=== PATIENT | female | born 1995 | race Hispanic/Latino ===

== ENCOUNTER 2017-07-18 11:26 | Emergency (ER) | payer OTHER ==
[2017-07-18 12:24] LABS: Bilirubin Negative (Negative); Blood, Urine Trace (Negative); Clarity CLEAR (Clear); Glucose, Urine (Dipstick) Negative (Negative); Leukocyte Negative (Negative); Nitrite Negative (Negative); Protein, Urine (Dipstick) Negative (Neg-Trace); Specific Gravity, Urine 1.021 (1.002-1.036)
[2017-07-18] MEDS ORDERED: Ketorolac Tromethamine 30 MG/ML VIAL ONE (12:26)
[2017-07-18 12:27] LABS: Bacteria/HPF None Seen HPF (None Seen); Hyaline Casts/LPF 0-3 HYALINE CAST LPF (0-3 Hyaline); Pathc Cast-AUWi Flag 0.58 (0-2.49); RBC/HPF 0-3 HPF (0-3); Squamous Epithelial 0-3 HPF (0-3); WBC/HPF 0-3 HPF (0-3)
[2017-07-18 12:31] LABS: Pregnancy Test - Urine (BHCG) Negative (Negative); Pregu Control Background? CLEAR/WHITE (CLR/WHITE); Pregu Control Bar Appear? YES (CONTROL BAR); Specific Gravity 1.021 (1.002-1.036)
== END 2017-07-18 13:34 | disposition home or self-care (01) ==
LOC: ERS 11:26
DX: R10.2 Pelvic and perineal pain (principal); F41.9 Anxiety disorder, unspecified; F32.9 Major depressive disorder, single episode, unspecified
CPT/HCPCS: 81003; 81015; 81025; 96372; J1885

== ENCOUNTER 2018-01-13 12:42 | Emergency (ER) | payer OTHER ==
[2018-01-13] MEDS ORDERED: diphenhydrAMINE 25 MG CAP ONE (13:08)
[2018-01-13] MEDS ORDERED: Famotidine 20 MG TAB ONE ×2 (13:08→13:10)
== END 2018-01-13 13:31 | disposition home or self-care (01) ==
LOC: ERS 12:42
DX: L50.3 Dermatographic urticaria (principal); J45.909 Unspecified asthma, uncomplicated; F41.9 Anxiety disorder, unspecified; F32.9 Major depressive disorder, single episode, unspecified; Z79.899 Other long term (current) drug therapy
CPT/HCPCS: 99282

== ENCOUNTER 2018-02-12 17:06 | Observation (INO) | payer OTHER ==
[~2018-02-12 17:06] MED LIST: ISOVUE-370 76%-LOCM 1 ML ONE
[2018-02-12 17:48] LABS: #Basophils 0.1 thou/uL (0.0-0.2); #Eosinphils 0.2 thou/uL (0.0-0.7); #Monocytes 0.5 thou/uL (0.11-0.59); #Neutrophils 4.1 thou/uL (1.40-6.50); %Basophils 1.4 % (0.0-1.0); %Eosinophils 2.4 % (0.0-10.0); %Lymphocytes 29.4 % (21.0-51.0); %Monocytes 7.4 % (0.0-10.0); %Neutrophils 59.4 % (42.0-75.0); Hemoglobin 14.2 g/dL (12.0-16.0); Mean Corpuscular Hemoglobin 29.9 pg (27.0-31.0); Mean Corpuscular Volume 88.1 fL (78.0-98.0); Mean Platelet Volume 6.5 fL (7.4-10.4); Platelet Count 328 thou/uL (130-400); RBC Distribution Width 10.9 % (11.5-14.5); Red Blood Cell (RBC) Count 4.74 mill/uL (4.20-5.40); White Blood Cell (WBC) Count 6.8 thou/uL (4.8-10.8)
[2018-02-12 18:09] LABS: ALT (SGPT) 13 U/L (8-55); AST (SGOT) 18 U/L (5-34); Albumin 4.6 g/dL (3.5-5.0); Alkaline Phosphatase 79 U/L (40-150); Anion Gap 11 mmol/L (10-20); BUN (Urea Nitrogen) 11 mg/dL (7.0-18.7); Bilirubin, Total 0.8 mg/dL (0.2-1.2); CK (CPK) 75 U/L (29-168); Calc. Creatinine Clearance 0 mL/min (70-130); Calcium 9.5 mg/dL (7.8-10.44); Carbon Dioxide 23 mmol/L (22-29); Chloride 105 mmol/L (98-107); Estimated GFR-MDRD Greater than 90; Globulin 2.9 g/dL (2.4-3.5); Glucose 76 mg/dL (70-105); Potassium 3.5 mmol/L (3.5-5.1); Protein, Total 7.5 g/dL (6.0-8.3); Sodium 135 mmol/L (136-145)
[2018-02-12 18:13] LABS: CKMB 0.7 ng/mL (0-6.6); Troponin I Less than 0.010 ng/mL (< 0.028)
--- NOTE | 2018-02-12 20:23 | RAD ---
FRONTAL RADIOGRAPH CHEST 02/12/18 COMPARISON: 11/27/11. HISTORY: Syncope, tachycardia. FINDINGS: There is no pneumothorax, pleural fluid, lobar consolidation, or alveolar edema. Heart and mediastina l contours are within normal limits. IMPRESSION: No acute findings. POS: [facility]
--- NOTE | 2018-02-12 21:08 | CT ---
CT ANGIOGRAM CHEST: 02/12/2018 HISTORY: Tachycardia and dizziness. Assess for pulmonary embolism. TECHNIQUE: Serial axial CT imaging is obtained at 2.5 mm intervals, from the thoracic inlet through the upper ab domen, with IV contrast, using a CT angiogram protocol. Coronal and oblique sagittal 3D reformatted imaging obtained. FINDINGS: The imaged upper abdomen is grossly unremarkable. No pleural, pericardial, or mediastinal fluid. No lymphadenopathy is noted in the chest. No pulmonary arterial filling defect is noted to suggest the presence of acute pulmonary embolism. The osseous structures demonstrate no acute findings. The lung parenchyma demonstrates no acute findings. IMPRESSION: No evidence for pulmonary embolism. POS: [facility]
[2018-02-13 00:27] VITALS: BMI 26.3
[2018-02-13] MEDS ORDERED: Acetaminophen 325 MG TAB PO PRN (08:36)
[2018-02-13] MEDS ORDERED: Ondansetron PF 4 MG/2 ML Vial IVP PRN (08:48)
[2018-02-13] MEDS ORDERED: Ondansetron ODT 4 MG TAB PO PRN (08:48)
[2018-02-13] MEDS: Sodium Chloride 0.9% 1,000 ML IV SCH ×3 (09:37→18:22)
[2018-02-13] MEDS: Enoxaparin Sodium 40 MG/0.4 ML SYRINGE SC SCH (09:37)
[2018-02-13] MEDS: Famotidine 20 MG TAB PO SCH ×2 (09:38→20:47)
[2018-02-13] MEDS ORDERED: Cosyntropin 250 MCG VIAL SLOW IVP SCH (15:30)
[2018-02-13] MEDS ORDERED: PROVENTIL INHALER 6.7 G (200 INHALATIONS) INH PRN (17:43)
--- NOTE | 2018-02-13 21:08 | HP ---
DATE OF ADMISSION: 02/12/2018 PRIMARY CARE PHYSICIAN: Dr. Elliott. CHIEF COMPLAINT: Chest pain, palpitations, and dizziness. HISTORY OF PRESENT ILLNESS: Ms. Camargo is a pleasant 22-year-old female with a past medical histor y of endometriosis, ovarian cyst, and asthma, who had presented to [facility] with symptoms of chest pain, heart racing, and dizziness. She states symptoms started about 3 to 4 d ays ago. She states that she was seen at [facility]. Two days ago, she states her steff p was normal and she was discharged to follow up with her PCP. She saw Dr. Elliott yesterday with sa me symptoms, she was told to come to the ER at that time. She denies any fever, chills, cough, nause a, vomiting, leg swelling, smoking, or drug use. She reports a recent hysterectomy back in October r underlying endometriosis, she is currently on control hormone patch. Her workup in the ER in cluded a chest x-ray, which was found to be unremarkable along with CTA of chest, which was negative for PE at that time. Her vital signs at rest are stable; however, orthostatic blood pressure was obt ained and was positive for orthostatic hypotension. She had reports drinking about 5 water bottles a day along with getting 3 liters of fluid between [facility] and [facility]. She states that she has noticed a little improvement of symptoms. Morning cortisol was o btained and found to be 4.0. It was ultimately decided that she will be admitted under observation s tatus for further workup of symptoms. PAST MEDICAL HISTORY: Ovarian cyst, endometriosis, asthma. PAST SURGICAL HISTORY: section, multiple laparoscopic surgeries for 1endometriosis, and tot al hysterectomy. PSYCHIATRIC HISTORY: Does report history of anxiety and depression. SOCIAL HISTORY: Denies smoking, alcohol use, or drug use. ALLERGIES: No known drug allergies. CURRENT MEDICATIONS: 1. Estradiol 0.05 mg patch 1 patch daily. 2. Cymbalta 30 mg p.o. daily. 3. ProAir HFA inhaler, 2 puffs q.6 hours as needed for wheezing. REVIEW OF SYSTEMS: Constitutional: Denies any fever, chills, weight loss, or weight gain. HEENT: Denies any headache, blurred vision, eye pain, sore throat, change in vision, change in hearing, or t rouble swallowing. Cardiovascular: Does report some chest pain, palpitations when standing. Respir atory: Denies any cough, shortness of breath, or wheezing. Gastrointestinal: Denies any abdominal pain, constipation, or diarrhea. Musculoskeletal: Denies any swelling or weakness. Skin: Denies an y rash, lesions, or bruising. Neurologic: Reports some dizziness upon standing, denies any weakness or memory loss or trauma. Psychiatric: Does report history of anxiety and depression. Denies suic idal or homicidal ideation. PHYSICAL EXAMINATION: VITAL SIGNS: Blood pressure 122/82, pulse 68, respirations 16, O2 saturations 98% on room air. GENERAL: She is alert, oriented x3, no acute distress noted. HEENT: Head is normocephalic, atraumatic. Eyes are equal. Pupils are round, reactive to light. Ex traocular muscles intact. Ears, Nose, and Throat: Clear. Moist mucous membranes noted. NECK: Supple, normal range of motion. Trachea midline. No JVD, no bruit. CARDIAC: Positive orthostatic hypotension. Positive S1, S2. No murmurs or rubs. LUNGS: Clear to auscultation bilaterally. No wheezes, no rhonchi, no rales. ABDOMEN: Soft, nontender. Bowel sounds present. No masses noted. MUSCULOSKELETAL: Strength 5+ bilaterally upper and lower extremities. Radial and pedal pulses 2+ bi laterally. No edema noted. NEUROLOGY: Patient is alert and oriented x3. Speech is normal. No focal deficits noted. No sensor y loss. SKIN: Warm, dry, and intact. No lesions. No bruising noted. PSYCHIATRIC: Normal mood and affect. ASSESSMENT AND PLAN: 1. Chest pain, we will rule out Cardiology causes, patient denies any chest pain upon my exam, she w ill be continued on her home medications, orthostatic blood pressure is positive. She will be treate d with gentle IV hydration. Cortisol level 4.0 this morning, we will obtain ACTH stimulation in the a.m. Vital signs and cardiac enzymes will be monitored closely. Serial troponins will be obtained. Stress test will be ordered to rule out cardiac etiology. 2. Orthostatic hypotension, we will consider adrenal insufficiency, cortisol level 4.0 this morning. We will obtain ACTH stimulation test in the a.m. if positive, we will start patient on steroids. W e will continue gentle hydration for now with normal saline and monitor closely. 3. History of asthma, we will restart her home medication of ProAir inhaler to be used as needed for shortness of breath, she remained stable at this time with no complaints of shortness of breath or w heezing, lungs are clear, CTA negative for PE, chest x-ray unremarkable. 4. Deep venous thrombosis prophylaxis with Lovenox 40 mg subcutaneous daily. 5. Gastrointestinal prophylaxis with Pepcid 20 mg p.o. b.i.d., Zofran as needed for nausea. 6. Code status: FULL CODE. DISPOSITION: Pending. Patient progress and further workup, likely discharged if stable under 48 aldair rs, likely discharge home with close outpatient followup with PCP.
[2018-02-14] MEDS: Sodium Chloride 0.9% 1,000 ML IV SCH ×3 (01:54→16:33)
[2018-02-14 07:24] LABS: #Eosinphils 0.2 thou/uL (0.0-0.7); #Lymphocytes 1.8 thou/uL (1.20-3.40); #Monocytes 0.4 thou/uL (0.11-0.59); #Neutrophils 2.3 thou/uL (1.40-6.50); %Basophils 0.7 % (0.0-1.0); %Eosinophils 4.5 % (0.0-10.0); %Lymphocytes 37.4 % (21.0-51.0); %Monocytes 9.1 % (0.0-10.0); %Neutrophils 48.4 % (42.0-75.0); Hemoglobin 12.8 g/dL (12.0-16.0); Mean Corpuscular HGB CONC 33.2 g/dL (32.0-36.0); Mean Corpuscular Hemoglobin 29.5 pg (27.0-31.0); Mean Corpuscular Volume 88.8 fL (78.0-98.0); Mean Platelet Volume 6.4 fL (7.4-10.4); Platelet Count 255 thou/uL (130-400); RBC Distribution Width 10.9 % (11.5-14.5); Red Blood Cell (RBC) Count 4.35 mill/uL (4.20-5.40); White Blood Cell (WBC) Count 4.7 thou/uL (4.8-10.8)
[2018-02-14 07:42] LABS: Anion Gap 10 mmol/L (10-20); BUN (Urea Nitrogen) 7 mg/dL (7.0-18.7); Calc. Creatinine Clearance 143 mL/min (70-130); Calcium 8.6 mg/dL (7.8-10.44); Carbon Dioxide 25 mmol/L (22-29); Chloride 108 mmol/L (98-107); Estimated GFR-MDRD Greater than 90; Glucose 80 mg/dL (70-105); Potassium 3.6 mmol/L (3.5-5.1); Sodium 139 mmol/L (136-145)
[2018-02-14] MEDS: Famotidine 20 MG TAB PO SCH ×2 (09:36→20:47)
[2018-02-14] MEDS: Enoxaparin Sodium 40 MG/0.4 ML SYRINGE SC SCH (09:36)
[2018-02-14] MEDS: DULoxetine 30 MG CAP PO SCH (09:36)
[2018-02-14] MEDS ORDERED: Midodrine HCl 5 MG TAB PO SCH ×2 (12:15→15:00)
--- NOTE | 2018-02-14 15:33 | PDOC.PN ---
- Subjective Encounter Start Date: 02/14/18 Encounter Start Time: 13:00 Patient seen and examined with mother at bedside this morning. She continues to become hypotensive upon standing with dizziness. She was placed on midodrine, however repeat orthos positive. She denies chest pain, shortness of breath or palpitations at rest. - Objective Resuscitation Status FULL:Full Resuscitation MAR Reviewed: Yes Vital Signs & Weight: Vital Signs (12 hours) Temp Pulse Resp BP BP BP BP 02/14/18 14:18 97.9 F 135 H 16 111/64 93/56 L 115/73 02/14/18 11:28 98.6 F 77 16 111/75 02/14/18 07:34 98.3 F 70 20 116/79 106/68 121/83 02/14/18 04:07 97.6 F 74 16 116/75 Pulse Ox 02/14/18 14:18 99 02/14/18 11:28 97 02/14/18 07:34 98 02/14/18 04:07 98 Weight Admit Weight 153 lb 3.2 oz Weight 152 lb 9.6 oz I&O: 02/13/18 02/14/18 02/15/18 06:59 06:59 06:59 Intake Total 4456 442 Output Total 550 2550 Balance -550 1906 442 Result Diagrams: 02/14/18 07:10 02/14/18 07:10 Radiology Reviewed by me: Yes EKG Reviewed by me: Yes <Gilmar Gallardo - Last Filed: 02/14/18 15:30> - Objective Vital Signs & Weight: Weight Admit Weight 153 lb 3.2 oz Weight 152 lb 9.6 oz Result Diagrams: 02/14/18 07:10 02/14/18 07:10 <Sami Yan - Last Filed: 03/08/18 08:54> Phys Exam - Physical Examination Constitutional: NAD HEENT: PERRLA, moist MMs, sclera anicteric, oral pharynx no lesions Neck: no nodes, no JVD, supple Respiratory: no wheezing, no rales, no rhonchi, clear to auscultation bilateral Cardiovascular: RRR, no significant murmur, no rub Gastrointestinal: soft, non-tender, no distention, positive bowel sounds Musculoskeletal: no edema, pulses present Neurological: non-focal, normal sensation, moves all 4 limbs Lymphatic: no nodes Psychiatric: normal affect, A&O x 3 Skin: no rash, normal turgor, cap refill <2 seconds <Gilmar Gallardo - Last Filed: 02/14/18 15:30> Dx/Plan (1) Orthostatic hypotension Code(s): I95.1 - ORTHOSTATIC HYPOTENSION Status: Acute (2) Palpitations Code(s): R00.2 - PALPITATIONS Status: Acute - Plan cont current plan of care, plan discussed w/ family, DVT proph w/lovenox, DVT proph w/SCDs * Continue IV hydration, Midodrine for orthostatic hypotension * ACTH stimulation test normal * Obtain echocardiogram * Monitor orthostatic VS * Further management pending results and patient progress with Midodrine just started today around 1200 <Gilmar Gallardo - Last Filed: 02/14/18 15:30> - Plan * . <Sami Yan - Last Filed: 03/08/18 08:54> Attending Addendum - Attending Addendum Date/Time: 03/08/18 0854 Pt seen and examined in conjunction with Gilmar Gallardo PA-C on the day of service. I have seen and evaluated the patient and reviewed all documentations. I agree with the findings and plan as outlined in his note and participated in Medical decision-making. -Sami Yan MD <Sami Yan - Last Filed: 03/08/18 08:54>
[2018-02-14] MEDS: Midodrine HCl 5 MG TAB PO SCH (20:47)
[2018-02-15] MEDS: Sodium Chloride 0.9% 1,000 ML IV SCH ×2 (01:23→09:19)
[2018-02-15] MEDS: Enoxaparin Sodium 40 MG/0.4 ML SYRINGE SC SCH (08:34)
[2018-02-15] MEDS: DULoxetine 30 MG CAP PO SCH (08:35)
[2018-02-15] MEDS: Famotidine 20 MG TAB PO SCH (08:35)
[2018-02-15] MEDS: Midodrine HCl 5 MG TAB PO SCH ×2 (08:41→15:11)
[2018-02-15 15:53] VITALS: BP 131/88; TEMP 98.3
--- NOTE | 2018-02-16 10:47 | DIS ---
DATE OF ADMISSION: 02/12/2018 DATE OF DISCHARGE: 02/15/2018 PRIMARY CARE PHYSICIAN: Dr. Elliott CONSULTATIONS: None. PROCEDURES: The patient received a chest x-ray which showed no acute findings. The patient had a CTA of the chest that showed no evidence of a pulmonary embolism. The patient had an echocardiogram with ejection fraction 55-60%, left atrium normal size. Trace mitral regurgitation, trace tricuspid regurgitation, normal pulmonary artery pressure. DISCHARGE DIAGNOSES: 1. Chest pain, atypical in nature. 2. Orthostatic hypotension 3. History of asthma. She was continued on her ProAir inhaler. REVIEW OF SYSTEMS: The patient was seen by and examined the morning of discharge. CONSTITUTIONAL: Denies any chills and fever. EYES: Negative review of systems. ENT: Negative ears, nose, throat review of systems. CARDIOVASCULAR: Denied any chest pain, denies any palpitations, denied any presyncopal or syncopal episodes while admitted. RESPIRATORY: Denied any cough, shortness of breath. GI: Denied any abdominal pain, nausea, vomiting, diarrhea. MUSCULOSKELETAL: Negative of review of systems. SKIN: Negative of review of systems. NEUROLOGIC: Denied any dizziness. ENDOCRINE: Negative review of systems. PSYCH: Negative review of systems. PHYSICAL EXAMINATION: VITAL ON DISCHARGE: Temperature 98.2, pulse 75, respirations were 20. Pulse ox is 98% on room air, blood pressure 115/76. GENERAL: The patient is sitting in bed watching a movie with her son, is in no distress. HEAD: Head is atraumatic, normocephalic. EYES: Normal to inspection. Pupils are equally round and reactive to light. Extraocular muscles are intact. ENT: No bleeding from the nares. Mucous membranes are moist. NECK: Normal range of motion. Trachea is midline. RESPIRATORY: Breath sounds are clear. CARDIOVASCULAR: Heart sounds are normal. S1, S2, no gallop, no rub. ABDOMEN: Female, nontender on palpation. Bowel sounds are heard x4. BACK: Normal range of motion. No CVA tenderness. EXTREMITIES: Upper and lower extremities are normal to inspection, normal range of motion. Pulses are equal bilaterally. No pedal edema is noted. NEUROLOGIC: The patient is alert, oriented to person, place and time. No focal motor or sensory deficits. SKIN: Warm, dry, normal in color. PSYCHIATRIC: The patient is oriented to person, place and time. Normal affect. HOSPITAL COURSE: This is a pleasant 22-year-old female who was admitted to the emergency room on 02/12/2018 with a complaint of heart racing and dizziness and heavy pressure/chest pain on the left hand side. The patient felt like she was going to pass out when she stood up. The patient had reported that she had been to the [facility] earlier this week. Reports had blood drawn, some IV fluids and sent home. The patient reported to [facility] because she did not feel much better. Past medical history was significant for a hysterectomy in October for endometriosis and hormone replacement with a hormone patch. The patient had orthostatic hypotension and was started on midodrine 5 mg p.o. t.i.d. On day of discharge, the patient states that she feels much better, no longer gets dizzy when she changes position, has been able to ambulate to the bathroom and to the hallway without assistance and without feeling dizzy or feeling like she was presyncopal. Echocardiogram had been performed, but had not been read prior to discharge. The patient was instructed to follow up with Dr. Elliott for findings. Discharge plan discussed with Dr. Hernandez, who agreed with discharge plan home. The patient did have a stem cortisol test which showed to be within normal limits. TSH was also unremarkable. HOME MEDICATIONS: The patient will be continued on ProAir 2 puffs q.6 hours as needed, Cymbalta 30 mg p.o. daily, Estradiol 0.05 mg patch 1 patch every 7 days and the midodrine 5 mg p.o. t.i.d. was added to her home medication. ALLERGIES: The patient has no known drug allergies. CONDITION: The patient's condition is stable. DISCHARGE INSTRUCTIONS: The patient will be discharged home. The patient is instructed to follow up with Dr. Elliott within 1 week. Also, instructed to follow up with her PHARMACY CARE COORDINATOR to discuss estradiol patch as she reports since she switched to the generic her skin breaks out from time to time. MARIELA
== END 2018-02-15 16:44 | disposition home or self-care (01) ==
LOC: ERS 17:06 → 2SW 23:34
PROVIDERS: ADMIT Internal Medicine; ATTEND Internal Medicine
DX: R07.89 Other chest pain (principal); I95.1 Orthostatic hypotension; J45.909 Unspecified asthma, uncomplicated; R00.2 Palpitations
CPT/HCPCS: 36415; 71045; 71275; 80048; 80053; 80400; 82024; 82533; 82550; 82553; 84443; 84484; 85025; 93005; 93306; 96360; 96361; 96372; G0378; J0834; J1650

== ENCOUNTER 2018-02-26 11:07 | Emergency (ER) | payer OTHER ==
[2018-02-26 13:36] LABS: #Basophils 0.1 thou/uL (0.0-0.2); #Eosinphils 0.2 thou/uL (0.0-0.7); #Lymphocytes 2.5 thou/uL (1.20-3.40); #Monocytes 0.4 thou/uL (0.11-0.59); #Neutrophils 3.4 thou/uL (1.40-6.50); %Basophils 1.4 % (0.0-1.0); %Eosinophils 2.4 % (0.0-10.0); %Lymphocytes 38.8 % (21.0-51.0); %Monocytes 5.8 % (0.0-10.0); %Neutrophils 51.7 % (42.0-75.0); Hemoglobin 14.6 g/dL (12.0-16.0); Mean Corpuscular HGB CONC 34.8 g/dL (32.0-36.0); Mean Corpuscular Volume 89.2 fL (78.0-98.0); Platelet Count 343 thou/uL (130-400); Red Blood Cell (RBC) Count 4.72 mill/uL (4.20-5.40); White Blood Cell (WBC) Count 6.5 thou/uL (4.8-10.8)
[2018-02-26 14:00] LABS: ALT (SGPT) 17 U/L (8-55); AST (SGOT) 18 U/L (5-34); Albumin 4.6 g/dL (3.5-5.0); Alkaline Phosphatase 76 U/L (40-150); Anion Gap 11 mmol/L (10-20); BUN (Urea Nitrogen) 8 mg/dL (7.0-18.7); Bilirubin, Total 0.4 mg/dL (0.2-1.2); Calc. Creatinine Clearance 0 mL/min (70-130); Calcium 9.5 mg/dL (7.8-10.44); Carbon Dioxide 25 mmol/L (22-29); Chloride 106 mmol/L (98-107); Estimated GFR-MDRD Greater than 90; Globulin 2.9 g/dL (2.4-3.5); Glucose 78 mg/dL (70-105); Protein, Total 7.5 g/dL (6.0-8.3); Sodium 138 mmol/L (136-145)
[2018-02-26 15:00] LABS: INR-International Normal Ratio 1.1; Prothrombin Time 14.3 SEC (12.0-14.7)
[2018-02-26 15:01] LABS: PTT 37.5 SEC (22.9-36.1)
[2018-02-26] MEDS ORDERED: Ondansetron PF 4 MG/2 ML Vial ONE (15:21)
[2018-02-26 15:25] LABS: Troponin I Less than 0.010 ng/mL (< 0.028)
== END 2018-02-26 17:00 | disposition home or self-care (01) ==
LOC: ERS 11:07
DX: R00.1 Bradycardia, unspecified (principal); R11.0 Nausea; J45.909 Unspecified asthma, uncomplicated; F41.9 Anxiety disorder, unspecified; F32.9 Major depressive disorder, single episode, unspecified; Z79.899 Other long term (current) drug therapy
CPT/HCPCS: 36415; 80053; 83735; 83880; 84484; 85025; 85610; 85730; 93005; 96361; 96374; J2405

== ENCOUNTER 2018-03-03 11:07 | Emergency (ER) | payer OTHER ==
[2018-03-03] MEDS ORDERED: Metoprolol Tartrate 5 MG/5 ML VIAL ONE (11:25)
[2018-03-03 11:33] LABS: #Basophils 0.1 thou/uL (0.0-0.2); #Eosinphils 0.1 thou/uL (0.0-0.7); #Lymphocytes 1.3 thou/uL (1.20-3.40); #Monocytes 0.3 thou/uL (0.11-0.59); #Neutrophils 4.9 thou/uL (1.40-6.50); %Basophils 1.3 % (0.0-1.0); %Eosinophils 1.7 % (0.0-10.0); %Lymphocytes 19.1 % (21.0-51.0); %Monocytes 4.4 % (0.0-10.0); %Neutrophils 73.6 % (42.0-75.0); Hemoglobin 14.3 g/dL (12.0-16.0); Mean Corpuscular HGB CONC 33.6 g/dL (32.0-36.0); Mean Corpuscular Hemoglobin 29.7 pg (27.0-31.0); Mean Corpuscular Volume 88.2 fL (78.0-98.0); Mean Platelet Volume 7.1 fL (7.4-10.4); Platelet Count 291 thou/uL (130-400); RBC Distribution Width 10.8 % (11.5-14.5); Red Blood Cell (RBC) Count 4.81 mill/uL (4.20-5.40); White Blood Cell (WBC) Count 6.6 thou/uL (4.8-10.8)
[2018-03-03 12:03] LABS: CKMB 0.6 ng/mL (0-6.6)
[2018-03-03 12:06] LABS: ALT (SGPT) 17 U/L (8-55); AST (SGOT) 18 U/L (5-34); Alkaline Phosphatase 82 U/L (40-150); Anion Gap 12 mmol/L (10-20); BUN (Urea Nitrogen) 12 mg/dL (7.0-18.7); Bilirubin, Total 0.5 mg/dL (0.2-1.2); CK (CPK) 53 U/L (29-168); Calc. Creatinine Clearance 0 mL/min (70-130); Carbon Dioxide 25 mmol/L (22-29); Chloride 103 mmol/L (98-107); Estimated GFR-MDRD Greater than 90; Globulin 3.2 g/dL (2.4-3.5); Glucose 95 mg/dL (70-105); Potassium 3.8 mmol/L (3.5-5.1); Protein, Total 8.2 g/dL (6.0-8.3); Sodium 136 mmol/L (136-145)
--- NOTE | 2018-03-03 12:08 | RAD ---
RADIOGRAPH CHEST 1 VIEW: HISTORY: 22-year-old female with tachycardia and dyspnea. FINDINGS: The visualized lung doran are clear. The cardiomediastinal silhouette and hilar shadows are normal. The lateral costophrenic angles are sharp. The osseous structures appear normal. There is no pneu mothorax. IMPRESSION: Negative. charlie POS: [facility]
--- NOTE | 2018-03-06 11:58 | EKG ---
Test Reason : Blood Pressure : / mmHG Vent. Rate : 138 BPM Atrial Rate : 138 BPM P-R Int : 116 ms QRS Dur : 078 ms QT Int : 296 ms P-R-T Axes : 063 061 -23 degrees QTc Int : 448 ms Sinus tachycardia Possible Left atrial enlargement Nonspecific ST abnormality Abnormal QRS-T angle, consider primary T wave abnormality Abnormal ECG Confirmed by PHOEBE AVILA, KENDRA ([id number]), technical writer and editor ANTONETTE LOPEZ ([id number]) on 03/06/2018 11:57:42 AM Referred By: Confirmed By:KENDRA SANDHU MD
== END 2018-03-03 13:06 | disposition home or self-care (01) ==
LOC: ERS 11:07
DX: R00.0 Tachycardia, unspecified (principal); J45.909 Unspecified asthma, uncomplicated; F41.9 Anxiety disorder, unspecified; Z79.899 Other long term (current) drug therapy
CPT/HCPCS: 71045; 80053; 82550; 82553; 85025; 85379; 93005; 96361; 96374

== ENCOUNTER 2018-03-28 06:04 | Emergency (ER) | payer OTHER ==
[2018-03-28] MEDS ORDERED: Metoprolol Tartrate 25 MG TAB ONE (07:16)
== END 2018-03-28 08:47 | disposition home or self-care (01) ==
LOC: ERS 06:04
DX: I49.8 Other specified cardiac arrhythmias (principal); J45.909 Unspecified asthma, uncomplicated; F41.9 Anxiety disorder, unspecified; Z79.51 Long term (current) use of inhaled steroids; Z79.899 Other long term (current) drug therapy
CPT/HCPCS: 93005

== ENCOUNTER 2018-10-29 12:14 | Emergency (ER) | payer BC ==
[2018-10-29] MEDS ORDERED: Ketorolac Tromethamine 30 MG/ML VIAL ONE (13:07)
[2018-10-29] MEDS ORDERED: Ondansetron PF 4 MG/2 ML Vial ONE (13:07)
[2018-10-29 13:23] LABS: #Basophils 0.1 thou/uL (0.0-0.2); #Eosinphils 0.3 thou/uL (0.0-0.7); #Monocytes 0.3 thou/uL (0.11-0.59); #Neutrophils 2.3 thou/uL (1.40-6.50); %Basophils 1.6 % (0.0-1.0); %Eosinophils 5.6 % (0.0-10.0); %Lymphocytes 40.1 % (21.0-51.0); %Monocytes 6.1 % (0.0-10.0); %Neutrophils 46.6 % (42.0-75.0); Bilirubin Negative (Negative); Blood, Urine Trace (Negative); Clarity Cloudy (Clear); Glucose, Urine (Dipstick) Negative (Negative); Hemoglobin 13.8 g/dL (12.0-16.0); Leukocyte Negative (Negative); Mean Corpuscular Volume 88.3 fL (78.0-98.0); Mean Platelet Volume 6.3 fL (7.4-10.4); Nitrite Negative (Negative); Platelet Count 264 thou/uL (130-400); Protein, Urine (Dipstick) Negative (Neg-Trace); RBC Distribution Width 11.6 % (11.5-14.5); Urobilinogen 0.2 mg/dL (Less than 2)
[2018-10-29 13:35] LABS: Bacteria/HPF 2+ HPF (None Seen); Mucous/LPF 1+ LPF (<2+); WBC/HPF 0-3 HPF (0-3)
[2018-10-29 13:40] LABS: ALT (SGPT) 14 U/L (8-55); AST (SGOT) 17 U/L (5-34); Albumin 4.3 g/dL (3.5-5.0); Alkaline Phosphatase 77 U/L (40-150); Anion Gap 12 mmol/L (10-20); BUN (Urea Nitrogen) 10 mg/dL (7.0-18.7); Bilirubin, Total 0.6 mg/dL (0.2-1.2); Calc. Creatinine Clearance 0 mL/min (70-130); Calcium 9.4 mg/dL (7.8-10.44); Carbon Dioxide 24 mmol/L (22-29); Chloride 108 mmol/L (98-107); Estimated GFR-MDRD Greater than 90; Globulin 2.9 g/dL (2.4-3.5); Glucose 80 mg/dL (70-105); Potassium 3.9 mmol/L (3.5-5.1); Protein, Total 7.2 g/dL (6.0-8.3); Sodium 140 mmol/L (136-145)
--- NOTE | 2018-10-29 13:52 | RAD ---
KUB: 10/29/2018 COMPARISON: None HISTORY: Right lower quadrant pain FINDINGS: The bowel gas pattern is nonobstructed. Supine imaging limits assessment for free intraperi toneal air and small bowel obstruction. No acute osseous abnormality. IMPRESSION: Unremarkable KUB.
== END 2018-10-29 15:14 | disposition home or self-care (01) ==
LOC: SCSER 12:14
DX: R10.31 Right lower quadrant pain (principal); J45.909 Unspecified asthma, uncomplicated; F41.9 Anxiety disorder, unspecified; F32.9 Major depressive disorder, single episode, unspecified; F43.10 Post-traumatic stress disorder, unspecified; Z79.899 Other long term (current) drug therapy
CPT/HCPCS: 74018; 80053; 81003; 81015; 85025; 86140; 96361; 96374; 96375; J1885; J2405